=== PATIENT | male | born 1955 | race Caucasian/White ===

== ENCOUNTER 2017-02-03 10:02 | Emergency (ER) | payer OTHER, MEDICARE ==
[2017-02-03] MEDS ORDERED: CLINDAMYCIN 600 MG/D5W RTU 50 ML IV ONE (10:33)
--- NOTE | 2017-02-03 10:35 | ER Document Report ---
ED Medical Screen (RME) - General Chief Complaint: Leg Pain Stated Complaint: LEFT LEG PAIN Time Seen by Provider: 02/03/17 10:32 Mode of Arrival: Wheelchair Information source: Patient Notes: Patient presents complaining of 3 day history of left lower extremity pain, redness and swelling. Patient states that his leg has started to weep. Patient is concerned about cellulitis and states he has been hospitalized with this in the past. Patient denies any fever. Patient does report a history of diabetes. hx: Hypertension, diabetes, dyslipidemia TRAVEL OUTSIDE OF THE [place] IN LAST 30 DAYS: No - Related Data Allergies/Adverse Reactions: No Known Allergies Allergy (Verified 02/03/17 10:10) Past Medical History - Social History Chew tobacco use (# tins/day): No Frequency of alcohol use: None Drug Abuse: None - Past Medical History Cardiac Medical History: Reports: Hx Hypertension Endocrine Medical History: Reports: Hx Diabetes Mellitus Type 1 Renal/ Medical History: Denies: Hx Peritoneal Dialysis GI Medical History: Reports: Hx Gastroesophageal Reflux Disease Psychiatric Medical History: Reports: Hx Depression Past Surgical History: Reports: Hx Appendectomy, Hx Orthopedic Surgery - bunyan , knee x2, palm, Hx Tonsillectomy - x2 - Immunizations Hx Diphtheria, Pertussis, Tetanus Vaccination: Yes Physical Exam - Vital signs Vitals: Temp Pulse Resp BP Pulse Ox 97.9 F 76 18 188/80 H 96 02/03/17 10:02/03/17 10:02/03/17 10:02/03/17 10:02/03/17 10:09 - Skin Skin Color: Erythema - Her lower extremities Skin Turgor: Tight Location of irregularity: Other - Weeping wounds to left lower extremity with yellow serous drainage Course - Vital Signs Vital signs: Temp Pulse Resp BP Pulse Ox 97.9 F 76 18 188/80 H 96 02/03/17 10:02/03/17 10:02/03/17 10:02/03/17 10:02/03/17 10:09
[2017-02-03 11:33] LABS: APPEARANCE,URINE CLEAR; BILIRUBIN,URINE NEGATIVE (NEGATIVE); GLUCOSE, URINE 50 mg/dL (NEGATIVE); KETONES,URINE NEGATIVE (NEGATIVE); LEUKOCYTE ESTERASE,URINE NEGATIVE (NEGATIVE); NITRITE,URINE NEGATIVE (NEGATIVE); PROTEIN,URINE 30 mg/dL (NEGATIVE); URINE SPECIFIC GRAVITY 1.008; UROBILINOGEN,URINE NEGATIVE mg/dL (<2.0)
[2017-02-03 11:35] LABS: ABSOLUTE BASOPHILS # (AUTO) 0.1 10^3/uL (0.0-0.2); ABSOLUTE EOSINOPHILS # (AUTO) 0.2 10^3/uL (0.0-0.6); ABSOLUTE LYMPHOCYTES (AUTO) 1.5 10^3/uL (0.5-4.7); ABSOLUTE MONOCYTES (AUTO) 0.7 10^3/uL (0.1-1.4); ABSOLUTE NEUT (AUTO) 4.1 10^3/uL (1.7-8.2); BASOPHILS % (AUTO) 0.8 % (0-2); HEMATOCRIT 41.4 % (37.9-51.0); HEMOGLOBIN 13.8 g/dL (13.5-17.0); LYMPHOCYTES % (AUTO) 22.9 % (13-45); MEAN CORPUSCULAR HEMOGLOBIN 29.2 pg (27.0-33.4); MEAN CORPUSCULAR HGB CONC 33.2 g/dL (32.0-36.0); MEAN CORPUSCULAR VOLUME 88 fl (80-97); MONOCYTES % (AUTO) 11.2 % (3-13); RED BLOOD COUNT 4.71 10^6/uL (4.35-5.55); RED CELL DISTRIBUTION WIDTH 13.2 % (11.5-14.0); SEGMENTED NEUTROPHILS % (AUTO) 62.1 % (42-78); WHITE BLOOD COUNT 6.6 10^3/uL (4.0-10.5)
[2017-02-03 11:50] LABS: ALANINE AMINOTRANSFERASE 37 U/L (21-72); ALBUMIN 3.9 g/dL (3.5-5.0); ALKALINE PHOSPHATASE 77 U/L (38-126); ANION GAP 12 (5-19); ASPARTATE AMINO TRANSFERASE 21 U/L (17-59); BILIRUBIN,DIRECT 0.3 mg/dL (0.0-0.4); BILIRUBIN,TOTAL 0.6 mg/dL (0.2-1.3); BLOOD UREA NITROGEN 16 mg/dL (7-20); CARBON DIOXIDE 25 mmol/L (22-30); CHLORIDE 102 mmol/L (98-107); CREATININE RESULT 0.83 mg/dL (0.52-1.25); GLUCOSE 205 mg/dL (75-110); POTASSIUM 4.2 mmol/L (3.6-5.0); SODIUM 138.6 mmol/L (137-145); TOTAL PROTEIN 7.2 g/dL (6.3-8.2)
[2017-02-03] MEDS ORDERED: CLINDAMYCIN HCL 150 MG CAPSULE PO ONE (14:11)
--- NOTE | 2017-02-03 14:23 | ER Document Report ---
ED General - General Chief Complaint: Leg Pain Stated Complaint: LEFT LEG PAIN Time Seen by Provider: 02/03/17 10:32 Mode of Arrival: Wheelchair TRAVEL OUTSIDE OF THE [place] IN LAST 30 DAYS: No - HPI Patient complains to provider of: cellulitis Notes: Patient has chronic venous stasis changes to bilateral lower extremities now with warmth and erythema around the stasis changes. States similar to cellulitis in the past. Denies fevers chills nausea vomiting. - Related Data Allergies/Adverse Reactions: No Known Allergies Allergy (Verified 02/03/17 10:10) Past Medical History - General Information source: Patient - Social History Smoking Status: Current Every Day Smoker Chew tobacco use (# tins/day): No Frequency of alcohol use: None Drug Abuse: None Family History: Reviewed & Not Pertinent Patient has suicidal ideation: No Patient has homicidal ideation: No - Past Medical History Cardiac Medical History: Reports: Hx Hypertension Endocrine Medical History: Reports: Hx Diabetes Mellitus Type 1 Renal/ Medical History: Denies: Hx Peritoneal Dialysis GI Medical History: Reports: Hx Gastroesophageal Reflux Disease Psychiatric Medical History: Reports: Hx Depression Past Surgical History: Reports: Hx Appendectomy, Hx Orthopedic Surgery - bunyan , knee x2, palm, Hx Tonsillectomy - x2 - Immunizations Hx Diphtheria, Pertussis, Tetanus Vaccination: Yes Hx Pneumococcal Vaccination: 09/02/09 Review of Systems - Review of Systems Constitutional: No symptoms reported EENT: No symptoms reported Cardiovascular: No symptoms reported Respiratory: No symptoms reported Gastrointestinal: No symptoms reported Genitourinary: No symptoms reported Male Genitourinary: No symptoms reported Musculoskeletal: No symptoms reported Skin: Other - Cellulitis Hematologic/Lymphatic: No symptoms reported Neurological/Psychological: No symptoms reported Physical Exam - Vital signs Vitals: Temp Pulse Resp BP Pulse Ox 97.9 F 76 18 188/80 H 96 02/03/17 10:02/03/17 10:02/03/17 10:02/03/17 10:02/03/17 10:09 Interpretation: Normal - General General appearance: Appears well, Alert - HEENT Head: Normocephalic, Atraumatic Eyes: Normal Pupils: PERRL - Respiratory Respiratory status: No respiratory distress Chest status: Nontender Breath sounds: Normal Chest palpation: Normal - Cardiovascular Rhythm: Regular Heart sounds: Normal auscultation Murmur: No - Abdominal Inspection: Normal Distension: No distension Bowel sounds: Normal Tenderness: Nontender Organomegaly: No organomegaly - Back Back: Normal, Nontender - Extremities General upper extremity: Normal inspection, Nontender, Normal color, Normal ROM , Normal temperature General lower extremity: Normal inspection, Nontender, Normal color, Normal ROM , Normal temperature, Normal weight bearing. No: Anai's sign - Neurological Neuro grossly intact: Yes Cognition: Normal Orientation: AAOx4 Dom Coma Scale Eye Opening: Spontaneous [place] Coma Scale Verbal: Oriented [place] Coma Scale Motor: Obeys Commands [place] Coma Scale Total: 15 Speech: Normal Motor strength normal: LUE, RUE, LLE, RLE Sensory: Normal - Psychological Associated symptoms: Normal affect, Normal mood - Skin Skin Temperature: Warm Skin Moisture: Dry Skin Color: Normal, Other - Patient with chronic venous stasis changes bilaterally but now with surrounding erythema and warmth Course - Re-evaluation Re-evalutation: 02/03/17 15:40 Will treat cellulitis with clindamycin. Lab work shows no critical etiology discharged home - Vital Signs Vital signs: Temp Pulse Resp BP Pulse Ox 97.9 F 76 18 188/80 H 96 02/03/17 10:09 02/03/17 10:09 02/03/17 10:09 02/03/17 10:09 02/03/17 10:09 - Laboratory Result Diagrams: 02/03/17 11:10 02/03/17 11:10 Laboratory results interpreted by me: 02/03/17 02/03/17 10:51 11:10 Glucose 205 H Urine Protein 30 H Urine Glucose (UA) 50 H Urine Blood MODERATE H Discharge - Discharge Clinical Impression: Cellulitis Qualifiers: Site of cellulitis: extremity Site of cellulitis of extremity: lower extremity Laterality: unspecified laterality Qualified Code(s): L03.119 - Cellulitis of unspecified part of limb Condition: Good Disposition: HOME, SELF-CARE Instructions: Cellulitis ([facility]), Clindamycin ([facility]) Additional Instructions: The examination is consistent with cellulitis. Follow-up with your primary care physician. Please take antibiotics as prescribed Prescriptions: Clindamycin HCl 150 mg PO QID 10 Days Hydrocodone Bit/Acetaminophen [Hydrocodon-Acetaminophen 5-325] 1 each PO Q6 #20 tablet Forms: Return to Work
[2017-02-03 14:51] VITALS: BP 164/72
== END 2017-02-03 14:35 | disposition home or self-care (01) ==
LOC: ER 10:02
DX: L03.119 Cellulitis of unspecified part of limb (principal); M79.605 Pain in left leg; F17.200 Nicotine dependence, unspecified, uncomplicated; I10 Essential (primary) hypertension; E10.9 Type 1 diabetes mellitus without complications; K21.9 Gastro-esophageal reflux disease without esophagitis
CPT/HCPCS: 36415; 80053; 81001; 83605; 85025; 87040; 96365; 99283

== ENCOUNTER 2020-05-12 23:09 | Inpatient (IN) | payer OTHER, MEDICARE ==
--- NOTE | 2020-05-13 00:10 | ER Document Report ---
ED General - General Chief Complaint: Low Blood Pressure Stated Complaint: HYPOTENSION Notes: 65-year-old male history of CHF hypertension COPD diabetes presents with low blood pressure, generalized weakness, cough scantly productive, fatigue x1 week. Patient denies focal symptoms, fever, shortness of breath, chest pain. History limited by poor historian TRAVEL OUTSIDE OF THE [place] IN LAST 30 DAYS: No - Related Data Allergies/Adverse Reactions: No Known Allergies Allergy (Verified 02/03/17 10:10) Home Medications: cavedilol, aspirin, lisinopril, diclofenac, gabapentin, amlopipine, ibuprofen, nexium, fluoxetine, atorvastatin, pronethazine, metformin, furosemide Past Medical History - General Information source: Patient, [facility] Records - Social History Smoking Status: Former Smoker Frequency of alcohol use: None Drug Abuse: None Family History: Reviewed & Not Pertinent Patient has homicidal ideation: No - Past Medical History Cardiac Medical History: Reports: Hx Congestive Heart Failure, Hx Hypertension Pulmonary Medical History: Reports: Hx COPD Endocrine Medical History: Reports: Hx Diabetes Mellitus Type 1 Renal/ Medical History: Denies: Hx Peritoneal Dialysis GI Medical History: Reports: Hx Gastroesophageal Reflux Disease Psychiatric Medical History: Reports: Hx Depression Past Surgical History: Reports: Hx Appendectomy, Hx Orthopedic Surgery - bunyan, knee x2, palm, Hx Tonsillectomy - x2 - Immunizations Hx Diphtheria, Pertussis, Tetanus Vaccination: Yes Hx Pneumococcal Vaccination: 09/02/09 Review of Systems - Review of Systems Notes: REVIEW OF SYSTEMS: CONSTITUTIONAL : Denies fever, chills, or sweats. EENT: Denies recent cold/sinus symptoms, denies throat pain CARDIOVASCULAR: Denies chest pain, [employer]ATORY: + cough, -denies shortness of breath. GASTROINTESTINAL: Denies abdominal pain, nausea/vomiting. GENITOURINARY: Denies difficulty urinating, painful urination. MUSCULOSKELETAL: Denies neck pain, back pain. SKIN: Denies rash or skin lesions. HEMATOLOGIC : Denies easy bruising or bleeding. LYMPHATIC: Denies swollen, enlarged glands. NEUROLOGICAL: Denies headache, denies change in gait. PSYCHIATRIC: Denies anxiety or stress or depression. Physical Exam - Vital signs Vitals: Resp 10 L 05/12/20 23:37 - Notes Notes: PHYSICAL EXAMINATION: GENERAL: Well-appearing, well-nourished and in no acute distress. HEAD: Atraumatic, normocephalic. EYES: Pupils equal round and appropriate constriction, sclera anicteric, conjunctiva are normal. ENT: nares patent, moist mucous membranes. NECK: Normal range of motion, supple without lymphadenopathy LUNGS: Breath sounds clear to auscultation bilaterally and equal. No rales HEART: Regular rate and rhythm without murmurs ABDOMEN: Soft, nontender, no guarding, no masses, no CVAT EXTREMITIES: Normal range of motion, no pitting or edema. No cyanosis. NEUROLOGICAL: Awake, alert, conversing appropriately, moves all extremities spontaneously. Cranial nerves II through XII intact bilaterally, normal finge r-to-nose, 5 out of 5 strength in all extremities, normal sensation PSYCH: Normal mood, normal affect. SKIN: Warm, Dry Course - Re-evaluation Re-evalutation: 05/17/20 08:11 Patient weakness with hypotension and patient with history with hypertension, no focal symptoms, will rule out COVID, treated for COPD exacerbation, rule out ACS, patient with renal insufficiency unknown baseline, admitted to medicine for further management The patient was evaluated during the global COVID-19 pandemic and that diagnosis was suspected/considered upon their initial presentation. Their evaluation, treatment and testing was consistent with current guidelines for patients who present with complaints or symptoms that may be related to COVID-19. - Vital Signs Vital signs: Temp Pulse Resp BP Pulse Ox 97.7 F 72 23 H 162/82 H 95 05/15/20 11:55 05/15/20 11:55 05/15/20 11:55 05/15/20 11:55 05/15/20 11:55 - Laboratory Result Diagrams: 05/15/20 05:45 05/14/20 05:55 Laboratory results interpreted by me: 05/12/20 05/12/20 05/12/20 23:33 23:33 23:33 WBC 11.1 H RBC 4.16 L Hgb 12.1 L Hct 36.7 L RDW 14.5 H VBG pH BUN 29 H Creatinine 2.03 H Est GFR ( Amer) 40 L Est GFR (MDRD) Non-Af 33 L Glucose 162 H Lactic Acid 2.5 H Urine Protein Urine Blood Urine Bilirubin 05/12/20 05/13/20 23:33 00:39 WBC RBC Hgb Hct RDW VBG pH 7.23 L BUN Creatinine Est GFR ( Amer) Est GFR (MDRD) Non-Af Glucose Lactic Acid Urine Protein 30 H Urine Blood MODERATE H Urine Bilirubin SMALL H - EKG Interpretation by Me Additional EKG results interpreted by me: 05/13/20 00:10 Heart rate 63, first-degree AV block, no significant ST elevations or depressions, no significant T wave abnormalities, QTc 406 Discharge - Discharge Clinical Impression: Hypotension, COPD (chronic obstructive pulmonary disease), Renal insufficiency Condition: Good Disposition: ADMITTED INPATIENT
[2020-05-13 00:25] LABS: VENOUS BLOOD BASE EXCESS -6.6 mmol/L; VENOUS BLOOD HCO3 21.3 mmol/L (20-32); VENOUS BLOOD PCO2 52.6 mmHg (35-63); VENOUS BLOOD PH 7.23 (7.30-7.42)
[2020-05-13 00:30] LABS: ABSOLUTE EOSINOPHILS # (AUTO) 0.3 10^3/uL (0.0-0.6); ABSOLUTE LYMPHOCYTES (AUTO) 2.2 10^3/uL (0.5-4.7); ABSOLUTE MONOCYTES (AUTO) 1.2 10^3/uL (0.1-1.4); ABSOLUTE NEUT (AUTO) 7.4 10^3/uL (1.7-8.2); BASOPHILS % (AUTO) 0.3 % (0-2); EOSINOPHILS % (AUTO) 3.1 % (0-6); HEMATOCRIT 36.7 % (37.9-51.0); HEMOGLOBIN 12.1 g/dL (13.5-17.0); MEAN CORPUSCULAR HEMOGLOBIN 29.1 pg (27.0-33.4); MEAN CORPUSCULAR HGB CONC 32.9 g/dL (32.0-36.0); MEAN CORPUSCULAR VOLUME 88 fl (80-97); MONOCYTES % (AUTO) 10.5 % (3-13); PLATELET COUNT 271 10^3/uL (150-450); RED BLOOD COUNT 4.16 10^6/uL (4.35-5.55); RED CELL DISTRIBUTION WIDTH 14.5 % (11.5-14.0); SEGMENTED NEUTROPHILS % (AUTO) 66.1 % (42-78); TOTAL CELLS COUNTED % (AUTO) 100 %; WHITE BLOOD COUNT 11.1 10^3/uL (4.0-10.5)
[2020-05-13 00:31] LABS: PROTHROMBIN TIME 13.4 SEC (11.4-15.4)
[2020-05-13] MEDS ORDERED: PREDNISONE 20 MG TABLET PO ONE (00:37)
[2020-05-13] MEDS ORDERED: IPRATROPIUM/ALBUTEROL 0.5-2.5 MG/3 ML AMPUL NEB ONE (00:37)
[2020-05-13] MEDS ORDERED: AZITHROMYCIN 250 MG TABLET PO ONE (00:37)
[2020-05-13 00:46] LABS: ALBUMIN 3.5 g/dL (3.5-5.0); ALKALINE PHOSPHATASE 63 U/L (38-126); ANION GAP 10 (5-19); ASPARTATE AMINO TRANSFERASE 17 U/L (17-59); BILIRUBIN,DIRECT 0.4 mg/dL (0.0-0.4); BILIRUBIN,TOTAL 0.6 mg/dL (0.2-1.3); BLOOD UREA NITROGEN 29 mg/dL (7-20); CALCIUM 8.5 mg/dL (8.4-10.2); CARBON DIOXIDE 22 mmol/L (22-30); CHLORIDE 105 mmol/L (98-107); GLUCOSE 162 mg/dL (75-110); POTASSIUM 4.6 mmol/L (3.6-5.0); TOTAL PROTEIN 6.4 g/dL (6.3-8.2)
[2020-05-13 01:13] LABS: NT PRO BNP 31 pg/mL (<125)
[2020-05-13 01:16] LABS: TROPONIN I < 0.012 ng/mL
[2020-05-13 01:18] LABS: APPEARANCE,URINE SLIGHTLY-CLOUDY; BILIRUBIN,URINE SMALL (NEGATIVE); COLOR,URINE YELLOW; GLUCOSE, URINE NEGATIVE (NEGATIVE); KETONES,URINE NEGATIVE (NEGATIVE); PROTEIN,URINE 30 mg/dL (NEGATIVE); URINE SPECIFIC GRAVITY 1.021; UROBILINOGEN,URINE NEGATIVE mg/dL (<2.0)
--- NOTE | 2020-05-13 01:18 | RADIOLOGY REPORT (SQ) ---
CLINICAL INDICATION: cough sob. TECHNIQUE: A single portable AP view was obtained of the chest at 0039 hours. COMPARISON: June 11, 2016. FINDINGS: The cardiomediastinal silhouette is prominent but stable. The lungs are grossly clear. No evidence of effusion or pneumothorax. Chronic parenchymal lung change. IMPRESSION: No evidence of active intrathoracic disease.
[2020-05-13] MEDS ORDERED: NORMAL SALINE 1000 ML 1,000 ML IV ONE (01:24)
[2020-05-13 01:52] LABS: URINE AMPHETAMINES SCREEN NEGATIVE; URINE BENZODIAZEPINES SCREEN NEGATIVE; URINE COCAINE SCREEN NEGATIVE; URINE MARIJUANA (THC) SCREEN NEGATIVE; URINE METHADONE SCREEN NEGATIVE; URINE PHENCYCLIDINE SCREEN NEGATIVE
[2020-05-13 01:55] LABS: URINE BARBITURATES SCREEN UNCONFIRMED POSITIVE
--- NOTE | 2020-05-13 02:05 | ER Document Report ---
ED General - General Chief Complaint: Low Blood Pressure Stated Complaint: HYPOTENSION Notes: 65-year-old male history of COPD, chronic low back pain, hypertension, prior renal failure several years ago presents with approximately 1 week of mostly dry scantly productive nonbloody cough, generalized weakness, fatigue, and low blood pressure. Patient brought in by EMS and was hypotensive with EMS and was given 1 L crystalloid bolus prior to arrival. Patient denies current vertigo but says that he has had intermittent episodes of vertigo over the past years and told that he had TIA in the past but no current symptoms. Patient denies fever, chest pain, abdominal pain, change in chronic back pain times years, syncope, trauma, sick contacts, change in p.o. intake, vomiting, diarrhea TRAVEL OUTSIDE OF THE [place] IN LAST 30 DAYS: No - Related Data Allergies/Adverse Reactions: No Known Allergies Allergy (Verified 02/03/17 10:10) Home Medications: cavedilol, aspirin, lisinopril, diclofenac, gabapentin, amlopipine, ibuprofen, nexium, fluoxetine, atorvastatin, pronethazine, metformin, furosemide Past Medical History - General Information source: Patient, [facility] Records - Social History Smoking Status: Former Smoker Frequency of alcohol use: None Drug Abuse: None Family History: Reviewed & Not Pertinent Patient has homicidal ideation: No - Past Medical History Cardiac Medical History: Reports: Hx Congestive Heart Failure, Hx Hypertension Pulmonary Medical History: Reports: Hx COPD Endocrine Medical History: Reports: Hx Diabetes Mellitus Type 1 Renal/ Medical History: Denies: Hx Peritoneal Dialysis GI Medical History: Reports: Hx Gastroesophageal Reflux Disease Psychiatric Medical History: Reports: Hx Depression Past Surgical History: Reports: Hx Appendectomy, Hx Orthopedic Surgery - bunyan, knee x2, palm, Hx Tonsillectomy - x2 - Immunizations Hx Diphtheria, Pertussis, Tetanus Vaccination: Yes Hx Pneumococcal Vaccination: 09/02/09 Review of Systems - Review of Systems Notes: REVIEW OF SYSTEMS: CONSTITUTIONAL : Denies fever, chills, or sweats. EENT: Denies recent sinus symptoms, denies throat pain CARDIOVASCULAR: Denies chest pain, ELIZAB[employer] RESPIRATORY: + cough, + shortness of breath. GASTROINTESTINAL: Denies abdominal pain, nausea/vomiting. GENITOURINARY: Denies difficulty urinating, painful urination. MUSCULOSKELETAL: Denies neck pain, back pain. SKIN: Denies rash or skin lesions. HEMATOLOGIC : Denies easy bruising or bleeding. LYMPHATIC: Denies swollen, enlarged glands. NEUROLOGICAL: Denies headache, denies change in gait. PSYCHIATRIC: Denies anxiety or stress or depression. Physical Exam - Vital signs Vitals: Resp 10 L 05/12/20 23:37 - Notes Notes: PHYSICAL EXAMINATION: GENERAL: Chronically ill-appearing middle-aged man appearing older than stated age in no acute distress HEAD: Atraumatic, normocephalic. EYES: Pupils equal round and appropriate constriction, sclera anicteric, conjunctiva are normal. ENT: nares patent, moist mucous membranes. NECK: Normal range of motion, supple without lymphadenopathy, no bruits LUNGS: Normal respiratory rate and effort, bilateral expiratory wheezing and mildly decreased air movement HEART: Regular rate and rhythm without murmurs ABDOMEN: Soft, nontender, no guarding, no masses, no CVAT EXTREMITIES: Normal range of motion, no pitting or edema. No cyanosis. NEUROLOGICAL: Awake, alert, conversing appropriately, moves all extremities spontaneously, cranial nerves II through XII intact bilaterally, normal sensa tion in all extremities, 5/5 strength in all extremities, normal [id number], normal HINTS exam PSYCH: Normal mood, normal affect. SKIN: Warm, Dry, normal turgor, no rashes or lesions noted. Course - Re-evaluation Re-evalutation: 05/13/20 02:14 Patient with "cloudy" urine, generalized fatigue, cough, low blood pressure for 1 week concerning for possible COVID-19 infection. Mild COPD exacerbation also, patient's creatinine elevated unknown what baseline is, no signs of clinical dehydration. Given concern for JAZMINE, dehydration, and ability to decompensate admitted patient to medicine floor. Discussed case with Dr. Hoang who has accepted patient. The patient was evaluated during the global COVID-19 pandemic and that diagnosis was suspected/considered upon their initial presentation. Their evaluation, treatment and testing was consistent with current guidelines for patients who present with complaints or symptoms that may be related to COVID-19. - Vital Signs Vital signs: Temp Pulse Resp BP Pulse Ox 97.7 F 72 23 H 162/82 H 95 05/15/20 11:55 05/15/20 11:55 05/15/20 11:55 05/15/20 11:55 05/15/20 11:55 - Laboratory Result Diagrams: 05/15/20 05:45 05/14/20 05:55 Laboratory results interpreted by me: 05/12/20 05/12/20 05/12/20 23:33 23:33 23:33 WBC 11.1 H RBC 4.16 L Hgb 12.1 L Hct 36.7 L RDW 14.5 H VBG pH BUN 29 H Creatinine 2.03 H Est GFR ( Amer) 40 L Est GFR (MDRD) Non-Af 33 L Glucose 162 H Lactic Acid 2.5 H Urine Protein Urine Blood Urine Bilirubin 05/12/20 05/13/20 23:33 00:39 WBC RBC Hgb Hct RDW VBG pH 7.23 L BUN Creatinine Est GFR ( Amer) Est GFR (MDRD) Non-Af Glucose Lactic Acid Urine Protein 30 H Urine Blood MODERATE H Urine Bilirubin SMALL H - Diagnostic Test Radiology results interpreted by me: 05/13/20 00:00 Sinus rhythm, first-degree AV block, no significant ST elevation or depression, no significant T wave abnormalities Discharge - Discharge Clinical Impression: Renal insufficiency Hypotension Qualifiers: Hypotension type: unspecified hypotension type Qualified Code(s): I95.9 - Hypotension, unspecified COPD (chronic obstructive pulmonary disease) Qualifiers: COPD type: unspecified COPD Qualified Code(s): J44.9 - Chronic obstructive pulmonary disease, unspecified Condition: Good Disposition: ADMITTED INPATIENT Admitting Provider: [facility] Unit Admitted: Medical Floor
[2020-05-13] MEDS ORDERED: IPRATROPIUM/ALBUTEROL 0.5-2.5 MG/3 ML AMPUL NEB PRN (02:51)
--- NOTE | 2020-05-13 04:04 | RADIOLOGY REPORT (SQ) ---
CT head without contrast on 05/13/2020 at 3:22 AM CLINICAL INDICATION: Vertigo TECHNIQUE: Multiple axial images are obtained throughout the head without the administration of contrast. This exam was performed according to our departmental dose-optimization program, which includes automated exposure control, adjustment of the mA and/or kV according to patient size and/or use of iterative reconstruction technique. Total DLP is 1017.17 mGy*cm. 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 There is no hydrocephalus. There is no CT evidence of acute infarct. There is no hemorrhage. There are no abnormal extra-axial fluid collections. There is no mass, mass effect or midline shift. No bony abnormality is noted. IMPRESSION: Stable exam with no acute intracranial abnormality.
[2020-05-13] MEDS ORDERED: DEXTROSE 50%-WATER 25 GM/50 ML DISP.SYRIN IV PRN ×2 (04:52)
[2020-05-13] MEDS ORDERED: DEXTROSE 40% GEL 15 GM TUBE PO PRN ×2 (04:52)
[2020-05-13] MEDS ORDERED: GLUCAGON,HUMAN RECOMB 1 MG INJ IM PRN (04:52)
--- NOTE | 2020-05-13 05:00 | PDOC H&P ---
History of Present Illness Admission Date/PCP: 05/13/20 02:[facility] Patient complains of: Increased sleepiness, cough History of Present Illness: LISA ESCOBAR is a 65 year old male, history of COPD on albuterol, type 2 diabetes, coronary artery disease who came in the emergency room with complaints of increased sleepiness cough. According to the patient and her daughter he has been having cough with minimal mucus production 1 week with associated general malaise, no fever. About 1 day prior to admission he was noted to have increased sleepiness, falling asleep during conversations which is not his baseline. He is supposed to be on BiPAP which he admits to not using for a few months. He denies any wheezing, chest pain, palpitations. No prior history of hospital admission secondary to COPD. No known exposure to COVID. Per EMS notes he was noted to be hypotensive hence was given 1 L of normal saline. He was also recently diagnosed with carotid artery stenosis. In the emergency room blood pressure upon arrival was 90/48, rate of 62. WBC count 11.1, low been 12.1. CMP showed creatinine of 2.03 lactic acid 2.5. Urine no signs of UTI . blood cultures were sent EKG showed sinus rhythm, his x- ray was unremarkable, CT unremarkable. He was given 1 dose of p.o. azithromycin, and duo nebs. He was subsequently admitted for further evaluation and management Past Medical History Cardiac Medical History: Reports: Congestive Heart Failure, Hyperlipidema, Hypertension Pulmonary Medical History: Reports: Chronic Obstructive Pulmonary Disease (COPD), Sleep Apnea EENT Medical History: Reports: None Neurological Medical History: Reports: Ischemic CVA Endocrine Medical History: Reports: Diabetes Mellitus Type 2 GI Medical History: Reports: Gastroesophageal Reflux Disease Psychiatric Medical History: Reports: Depression Past Surgical History Past Surgical History: Reports: Appendectomy, Orthopedic Surgery - bunyan, knee x2, palm, Tonsillectomy - x2 Social History Smoking Status: Former Smoker Cigarettes Packs Per Day: 20 Electronic Cigarette use?: Yes Number of Years Smokin Frequency of Alcohol Use: None Hx Recreational Drug Use: No Drugs: None Hx Prescription Drug Abuse: No Family History Family History: Reviewed & Not Pertinent Parental Family History Reviewed: Yes Children Family History Reviewed: Yes Sibling(s) Family History Reviewed.: Yes Medication/Allergy Home Medications: Fluoxetine HCl [Prozac 20 mg Capsule] 20 mg PO DAILY 08/31/14 Aspirin [Aspirin 325 mg Tablet] 325 mg PO DAILY 09/01/14 Atenolol [Tenormin] 25 mg PO DAILY 10/30/15 Atorvastatin Calcium 60 mg PO DAILY 10/30/15 Furosemide [Lasix 20 mg Tablet] 20 mg PO BID 10/30/15 Insulin Glargine,Hum.rec.anlog [Lantus] 14 units SQ DAILY 10/30/15 Omeprazole 20 tab PO DAILY 10/30/15 Saxagliptin HCl [Onglyza] 5 mg PO DAILY 10/30/15 Gabapentin 300 mg PO BID 02/22/16 Ibuprofen 800 mg pe PO Q8H PRN 02/22/16 Clindamycin HCl [Cleocin 150 mg Capsule] 300 mg PO Q6 #40 capsule 02/26/16 Oxycodone HCl/Acetaminophen [Percocet 7.5-325 mg Tablet] 1 tab PO Q6 03/13/16 Lisinopril [Prinivil 40 mg Tablet] 40 mg PO DAILY #30 tablet 03/15/16 Oxycodone HCl/Acetaminophen [Percocet 5-325 mg Tablet] 1 - 2 tab PO Q4H PRN #15 tablet 06/12/16 Sulfamethoxazole/Trimethoprim [Bactrim Ds Tablet] 1 each PO BID #14 tablet 06/12/16 Clindamycin HCl 150 mg PO QID 10 Days capsule 02/03/17 Hydrocodone Bit/Acetaminophen [Hydrocodon-Acetaminophen 5-325] 1 each PO Q6 #20 tablet 02/03/17 Allergies/Adverse Reactions: No Known Allergies Allergy (Verified 02/03/17 10:10) Physical Exam Vital Signs: Temp Pulse Resp BP Pulse Ox 97.3 F 65 14 122/55 L 98 05/12/20 23:41 05/12/20 23:41 05/13/20 02:31 05/13/20 02:31 05/13/20 02:31 Intake & Output 05/11/20 05/12/20 05/13/20 06:59 06:59 06:59 Intake Total 1000 Balance 1000 General appearance: PRESENT: mild distress, other - Morbidly obese Head exam: PRESENT: atraumatic, normocephalic Eye exam: PRESENT: EOMI, PERRLA Mouth exam: PRESENT: moist Neck exam: PRESENT: full ROM Respiratory exam: PRESENT: clear to auscultation oh, symmetrical, unlabored. ABSENT: crackles Cardiovascular exam: PRESENT: RRR, +S1, +S2. ABSENT: tachycardia Pulses: PRESENT: normal radial pulses GI/Abdominal exam: PRESENT: normal bowel sounds, soft. ABSENT: rebound, t enderness Extremities exam: PRESENT: full ROM, +1 edema, other - venous stasis dermatitis bilateral Musculoskeletal exam: PRESENT: full ROM Neurological exam: PRESENT: alert, awake - Falls falls asleep in the middle of conversation, oriented to person, oriented to place, oriented to time, oriented to situation Psychiatric exam: PRESENT: normal mood Skin exam: PRESENT: normal color, other - Stasis dermatitis bilateral Results Laboratory Results: 05/12/20 23:33 05/12/20 23:33 05/12/20 05/12/20 05/12/20 23:33 23:33 23:33 WBC 11.1 H RBC 4.16 L Hgb 12.1 L Hct 36.7 L MCV 88 MCH 29.1 MCHC 32.9 RDW 14.5 H Plt Count 271 Seg Neutrophils % 66.1 VBG pH VBG pCO2 VBG HCO3 VBG Base Excess Sodium 137.3 Potassium 4.6 Chloride 105 Carbon Dioxide 22 Anion Gap 10 BUN 29 H Creatinine 2.03 H Est GFR ( Amer) 40 L Glucose 162 H Lactic Acid 2.5 H Calcium 8.5 Total Bilirubin 0.6 AST 17 Alkaline Phosphatase 63 Total Protein 6.4 Albumin 3.5 Urine Color Urine Appearance Urine pH Ur Specific [place] Urine Protein Urine Glucose (UA) Urine Ketones Urine Blood Urine RBC (Auto) 05/12/20 05/13/20 05/13/20 23:33 00:39 03:05 WBC RBC Hgb Hct MCV MCH MCHC RDW Plt Count Seg Neutrophils % VBG pH 7.23 L VBG pCO2 52.6 VBG HCO3 21.3 VBG Base Excess -6.6 Sodium Potassium Chloride Carbon Dioxide Anion Gap BUN Creatinine Est GFR ( Amer) Glucose Lactic Acid 1.6 Calcium Total Bilirubin AST Alkaline Phosphatase Total Protein Albumin Urine Color YELLOW Urine Appearance SLIGHTLY-CLOUDY Urine pH 5.0 Ur Specific [place] 1.021 Urine Protein 30 H Urine Glucose (UA) NEGATIVE Urine Ketones NEGATIVE Urine Blood MODERATE H Urine RBC (Auto) 18 05/12/20 23:33 Troponin I < 0.012 NT-Pro-B Natriuret Pep 31 Impressions: Chest X-Ray 05/13/20 00:06 IMPRESSION: No evidence of active intrathoracic disease. Head CT 05/13/20 01:53 IMPRESSION: Stable exam with no acute intracranial abnormality. Assessment and Plan - Diagnosis (1) Chronic hypercapnic respiratory failure Is this a current diagnosis for this admission?: Yes Plan: -Known COPD sleep apnea with poor compliance to CPAP use -Admitted due to increased sleepiness and increased cough -VBG pH 7.23, PCO2 52.6 -Likely from sleep apnea and poor compliance to CPAP -Awaiting ABG -Ordered BiPAP (2) Suspected 2019 novel coronavirus infection Is this a current diagnosis for this admission?: Yes Plan: pending result - no known exposure (3) COPD (chronic obstructive pulmonary disease) Qualifiers: COPD type: unspecified COPD Qualified Code(s): J44.9 - Chronic obstructive pulmonary disease, unspecified Is this a current diagnosis for this admission?: Yes Plan: -Noted with increased cough and sputum production 1 week prior -No fever, no increased use of albuterol -No wheezing on exam -CXR unremarkable -Started on duo nebs -Prednisone 40 mg daily - COVID during -On BiPAP -Will likely need a controller medication (4) JAMI (obstructive sleep apnea) Is this a current diagnosis for this admission?: Yes Plan: -Diagnosed case of sleep apnea poorly compliant with BiPAP -Ordered BiPAP on this admission -Explained importance of adhering to BiPAP (5) Hypotension Qualifiers: Hypotension type: unspecified hypotension type Qualified Code(s): I95.9 - H ypotension, unspecified Is this a current diagnosis for this admission?: Yes Plan: -Blood pressure 90/48 on arrival -Resolved -Continue to monitor -held most of his blood pressure medications clonidine lisinopril carvedilol amlodipine Lasix (6) JAZMINE (acute kidney injury) Is this a current diagnosis for this admission?: Yes Plan: - crea 2.03 unknown baseline - can be from hypotensive episode or underlying CKD - he is on lasix, no known history of CHF - given 1L bolus - will hold off giving further fluids and monitor crea (7) Diabetes mellitus type 2 in obese Is this a current diagnosis for this admission?: Yes Plan: -On alogliptin 25 mg once a day and metformin 500 mg twice daily -Will hold oral medications -Sliding scale insulin and Accu-Checks (8) HTN (hypertension) Is this a current diagnosis for this admission?: Yes Plan: -Held Lasix 20 mg daily, carvedilol 12.5 mg twice daily, amlodipine 10 mg daily, lisinopril 40 mg once a day due to hypertension -Resume as needed (9) Morbid obesity Is this a current diagnosis for this admission?: Yes Plan: -Lifestyle modification and diet advised (10) Hyperlipidemia Qualifiers: Hyperlipidemia type: unspecified Qualified Code(s): E78.5 - Hyperlipidemia, unspecified Is this a current diagnosis for this admission?: Yes Plan: -Continue Lipitor (11) Noncompliance with CPAP treatment Is this a current diagnosis for this admission?: Yes (12) Carotid artery disease Is this a current diagnosis for this admission?: Yes Plan: Continue aspirin and Lipitor - Time Time Spent with patient: 35 or more minutes Smoking Cessation Education: 3 to 10 minutes Anticipated Discharge Disposition: Home, Self Care Anticipated Discharge Timeframe: to be determined - Inpatient Certification Medical Necessity: Need Close Monitoring Due to Risk of Patient Decompensation
[2020-05-13] MEDS: HEPARIN SOD (PORCINE) 5,000 UNIT/ML 1 ML VIAL SUBCUT SCH ×3 (05:58→21:51)
[2020-05-13] MEDS: GABAPENTIN 300 MG CAPSULE PO SCH ×3 (06:06→21:51)
[2020-05-13] MEDS ORDERED: METFORMIN HCL 500 MG TABLET PO SCH (08:00)
[2020-05-13 08:20] LABS: ARTERIAL BLOOD BASE EXCESS -7.2 mmol/L; ARTERIAL BLOOD H2CO3 1.34 mmol/L (1.05-1.35); ARTERIAL BLOOD HCO3 19.7 mmol/L (20-24); ARTERIAL BLOOD O2 SATURATION 88.9 % (94-98); ARTERIAL BLOOD PCO2 44.6 mmHg (35-45); ARTERIAL BLOOD PH 7.26 (7.35-7.45); ARTERIAL BLOOD PO2 63.2 mmHg (80-100)
[2020-05-13 08:21] LABS: ARTERIAL BLOOD FIO2 21%
[2020-05-13] MEDS: INSULIN LISPRO 100 UNIT/ML 3 ML VIAL SUBCUT SCH ×4 (09:01→21:51)
[2020-05-13] MEDS: PREDNISONE 20 MG TABLET PO SCH (09:24)
[2020-05-13] MEDS: ASPIRIN 81 MG TABLET, CHEWABLE PO SCH (09:24)
[2020-05-13] MEDS: FLUOXETINE HCL 20 MG CAPSULE PO SCH (09:24)
[2020-05-13] MEDS ORDERED: AMLODIPINE BESYLATE 10 MG TABLET PO SCH (10:00)
[2020-05-13] MEDS ORDERED: FUROSEMIDE 20 MG TABLET PO SCH (10:00)
[2020-05-13] MEDS ORDERED: CARVEDILOL 12.5 MG TABLET PO SCH (10:00)
[2020-05-13] MEDS ORDERED: LISINOPRIL 10 MG TABLET PO SCH (10:00)
[2020-05-13] MEDS: TAMSULOSIN HCL 0.4 MG CAP.SR.24H PO SCH (14:04)
--- NOTE | 2020-05-13 16:46 | EKG REPORT ---
SEVERITY:- ABNORMAL ECG - SINUS RHYTHM FIRST DEGREE AV BLOCK : Confirmed by: Chava Lucero MD 13-May-2020 16:46:17
[2020-05-13] MEDS: ACETAMINOPHEN 325 MG TABLET PO PRN (19:49)
[2020-05-13] MEDS: ATORVASTATIN CALCIUM 40 MG TABLET PO SCH (21:51)
[2020-05-13] MEDS ORDERED: KETOROLAC TROMETHAMINE INJ/PF 30 MG/1 ML SDV IV ONE (23:11)
[2020-05-13] MEDS ORDERED: KETOROLAC TROMETHAMINE INJ/PF 30 MG/1 ML SDV ONE (23:27)
[2020-05-14] MEDS: HEPARIN SOD (PORCINE) 5,000 UNIT/ML 1 ML VIAL SUBCUT SCH ×3 (05:39→21:48)
[2020-05-14] MEDS: GABAPENTIN 300 MG CAPSULE PO SCH ×3 (05:39→21:49)
[2020-05-14 06:46] LABS: ABSOLUTE BASOPHILS # (AUTO) 0.1 10^3/uL (0.0-0.2); EOSINOPHILS % (AUTO) 0.2 % (0-6); HEMOGLOBIN 11.6 g/dL (13.5-17.0); LYMPHOCYTES % (AUTO) 20.1 % (13-45); MEAN CORPUSCULAR HEMOGLOBIN 29.5 pg (27.0-33.4); MEAN CORPUSCULAR HGB CONC 34.2 g/dL (32.0-36.0); MEAN CORPUSCULAR VOLUME 86 fl (80-97); PLATELET COUNT 236 10^3/uL (150-450); RED BLOOD COUNT 3.94 10^6/uL (4.35-5.55); RED CELL DISTRIBUTION WIDTH 13.8 % (11.5-14.0); SEGMENTED NEUTROPHILS % (AUTO) 68.7 % (42-78); TOTAL CELLS COUNTED % (AUTO) 100 %; WHITE BLOOD COUNT 10.2 10^3/uL (4.0-10.5)
[2020-05-14 07:11] LABS: ARTERIAL BLOOD BASE EXCESS -2.1 mmol/L; ARTERIAL BLOOD H2CO3 1.28 mmol/L (1.05-1.35); ARTERIAL BLOOD HCO3 23.4 mmol/L (20-24); ARTERIAL BLOOD O2 SATURATION 94.5 % (94-98); ARTERIAL BLOOD PCO2 42.5 mmHg (35-45); ARTERIAL BLOOD PH 7.36 (7.35-7.45); ARTERIAL BLOOD TOTAL CO2 24.7 mmol/L (23-27)
[2020-05-14 07:12] LABS: ARTERIAL BLOOD FIO2 21%
[2020-05-14 07:20] LABS: ALBUMIN 3.3 g/dL (3.5-5.0); ALKALINE PHOSPHATASE 58 U/L (38-126); ANION GAP 8 (5-19); ASPARTATE AMINO TRANSFERASE 17 U/L (17-59); BILIRUBIN,DIRECT 0.2 mg/dL (0.0-0.4); BILIRUBIN,TOTAL 0.5 mg/dL (0.2-1.3); BLOOD UREA NITROGEN 31 mg/dL (7-20); CALCIUM 8.9 mg/dL (8.4-10.2); CARBON DIOXIDE 24 mmol/L (22-30); CHLORIDE 106 mmol/L (98-107); GLUCOSE 197 mg/dL (75-110); POTASSIUM 4.8 mmol/L (3.6-5.0); TOTAL PROTEIN 6.2 g/dL (6.3-8.2)
[2020-05-14] MEDS: INSULIN LISPRO 100 UNIT/ML 3 ML VIAL SUBCUT SCH ×4 (07:49→21:51)
[2020-05-14] MEDS: PREDNISONE 20 MG TABLET PO SCH (10:50)
[2020-05-14] MEDS: TAMSULOSIN HCL 0.4 MG CAP.SR.24H PO SCH (10:50)
[2020-05-14] MEDS: ASPIRIN 81 MG TABLET, CHEWABLE PO SCH (10:50)
[2020-05-14] MEDS: FLUOXETINE HCL 20 MG CAPSULE PO SCH (10:51)
--- NOTE | 2020-05-14 13:02 | PDOC PROGRESS REPORT ---
Subjective Progress Note for:: 05/14/20 Subjective:: Patient's breathing is much improved. He is much more comfortable. His COVID test is still pending. He has been oxygenating well. He still has a few scattered wheezing. Reason For Visit: COPD EXACERBATION,HYPERCAPNIA Physical Exam Vital Signs: Temp Pulse Resp BP Pulse Ox 98.1 F 69 20 145/66 H 95 05/14/20 12:00 05/14/20 12:00 05/14/20 12:00 05/14/20 12:00 05/14/20 12:00 Intake & Output 05/13/20 05/14/20 05/15/20 06:59 06:59 06:59 Intake Total 1000 932 Output Total 300 Balance 1000 632 Weight 143 kg General appearance: PRESENT: no acute distress, obese, well-developed, well- nourished Head exam: PRESENT: atraumatic, normocephalic Eye exam: PRESENT: conjunctiva pink, EOMI, PERRLA. ABSENT: scleral icterus Ear exam: PRESENT: normal external ear exam Mouth exam: PRESENT: moist, tongue midline Neck exam: ABSENT: carotid bruit, JVD, lymphadenopathy, thyromegaly Respiratory exam: PRESENT: clear to auscultation oh, unlabored, wheezes - scatt ered. ABSENT: rales, rhonchi Cardiovascular exam: PRESENT: RRR, +S1, +S2. ABSENT: diastolic murmur, rubs, systolic murmur Pulses: PRESENT: normal dorsalis pedis pul Vascular exam: PRESENT: normal capillary refill GI/Abdominal exam: PRESENT: normal bowel sounds, soft. ABSENT: distended, guarding, mass, organolmegaly, rebound, tenderness Rectal exam: PRESENT: deferred Extremities exam: PRESENT: full ROM. ABSENT: calf tenderness, clubbing, pedal edema Neurological exam: PRESENT: alert, awake, oriented to person, oriented to place, oriented to time, oriented to situation, CN II-XII grossly intact. ABSENT: motor sensory deficit Psychiatric exam: PRESENT: appropriate affect, normal mood. ABSENT: homicidal ideation, suicidal ideation Skin exam: PRESENT: dry, intact, warm. ABSENT: cyanosis, rash Results Laboratory Results: 05/14/20 05:55 05/14/20 05:55 05/14/20 05/14/20 05/14/20 05:55 05:55 06:59 WBC 10.2 RBC 3.94 L Hgb 11.6 L Hct 34.0 L MCV 86 MCH 29.5 MCHC 34.2 RDW 13.8 Plt Count 236 Seg Neutrophils % 68.7 Carbonic Acid 1.28 HCO3/H2CO3 Ratio 18:1 ABG pH 7.36 ABG pCO2 42.5 ABG pO2 75.0 L ABG HCO3 23.4 ABG O2 Saturation 94.5 ABG Base Excess -2.1 FiO2 21% Sodium 137.5 Potassium 4.8 Chloride 106 Carbon Dioxide 24 Anion Gap 8 BUN 31 H Creatinine 1.01 Est GFR ( Amer) > 60 Glucose 197 H Calcium 8.9 Total Bilirubin 0.5 AST 17 Alkaline Phosphatase 58 Total Protein 6.2 L Albumin 3.3 L 05/12/20 23:33 Troponin I < 0.012 NT-Pro-B Natriuret Pep 31 Impressions: Chest X-Ray 05/13/20 00:06 IMPRESSION: No evidence of active intrathoracic disease. Head CT 05/13/20 01:53 IMPRESSION: Stable exam with no acute intracranial abnormality. Assessment and Plan - Diagnosis (1) COPD (chronic obstructive pulmonary disease) Qualifiers: COPD type: unspecified COPD Qualified Code(s): J44.9 - Chronic obstructive pulmonary disease, unspecified Is this a current diagnosis for this admission?: Yes Plan: -Patient continues on bronchodilators as well as oral steroids. His breathing is much improved. He can be discharged home on oral steroids in another day or 2. (2) Chronic hypercapnic respiratory failure Is this a current diagnosis for this admission?: Yes Plan: -Known COPD sleep apnea with poor compliance to CPAP use -Admitted due to increased sleepiness and increased cough -VBG pH 7.23, PCO2 52.6 Since mental status has cleared and is probably at his baseline. Been advised to follow-up with his PCP and to use his CPAP as prescribed (3) Suspected 2019 novel coronavirus infection Is this a current diagnosis for this admission?: Yes Plan: still pending result - no known exposure Did offer the patient a chance to go home for outpatient follow-up by health department however due to comorbidities of family members he rather wait for result prior to discharge - Time Time Spent with patient: 15-24 minutes Medications reviewed and adjusted accordingly: Yes Anticipated Discharge Disposition: Home, Self Care Anticipated Discharge Timeframe: within 24 hours - Pending Covid Result
[2020-05-14] MEDS: ATORVASTATIN CALCIUM 40 MG TABLET PO SCH (21:49)
[2020-05-15] MEDS: ACETAMINOPHEN 325 MG TABLET PO PRN (04:28)
[2020-05-15] MEDS: GABAPENTIN 300 MG CAPSULE PO SCH (05:04)
[2020-05-15] MEDS: HEPARIN SOD (PORCINE) 5,000 UNIT/ML 1 ML VIAL SUBCUT SCH (05:04)
[2020-05-15 06:09] LABS: ABSOLUTE BASOPHILS # (AUTO) 0.1 10^3/uL (0.0-0.2); ABSOLUTE LYMPHOCYTES (AUTO) 2.4 10^3/uL (0.5-4.7); ABSOLUTE MONOCYTES (AUTO) 0.8 10^3/uL (0.1-1.4); TOTAL CELLS COUNTED % (AUTO) 100 %
[2020-05-15 06:33] LABS: ABSOLUTE NEUT (AUTO) 6.2 10^3/uL (1.7-8.2); BASOPHILS % (AUTO) 0.7 % (0-2); EOSINOPHILS % (AUTO) 0.4 % (0-6); HEMATOCRIT 37.1 % (37.9-51.0); HEMOGLOBIN 12.8 g/dL (13.5-17.0); MEAN CORPUSCULAR HEMOGLOBIN 29.4 pg (27.0-33.4); MEAN CORPUSCULAR HGB CONC 34.5 g/dL (32.0-36.0); MEAN CORPUSCULAR VOLUME 85 fl (80-97); MONOCYTES % (AUTO) 8.6 % (3-13); PLATELET COUNT 263 10^3/uL (150-450); RED BLOOD COUNT 4.36 10^6/uL (4.35-5.55); RED CELL DISTRIBUTION WIDTH 14.1 % (11.5-14.0); SEGMENTED NEUTROPHILS % (AUTO) 65.3 % (42-78); WHITE BLOOD COUNT 9.5 10^3/uL (4.0-10.5)
[2020-05-15] MEDS: INSULIN LISPRO 100 UNIT/ML 3 ML VIAL SUBCUT SCH ×2 (08:20→12:46)
[2020-05-15] MEDS: FLUOXETINE HCL 20 MG CAPSULE PO SCH (09:20)
[2020-05-15] MEDS: TAMSULOSIN HCL 0.4 MG CAP.SR.24H PO SCH (09:21)
[2020-05-15] MEDS: ASPIRIN 81 MG TABLET, CHEWABLE PO SCH (09:21)
[2020-05-15 12:10] VITALS: BP 153/71
--- NOTE | 2020-05-15 15:26 | PDOC DISCHARGE SUMMARY ---
Impression - Admit/DC Date/PCP Admission Date/Primary Care Provider: 05/13/20 02:[facility] Discharge Date: 05/15/20 - Assessment Summary: (1) COPD (chronic obstructive pulmonary disease) Qualifiers: COPD type: unspecified COPD Qualified Code(s): J44.9 - Chronic obstructive pulmonary disease, unspecified Is this a current diagnosis for this admission?: Yes Plan: -Patient continues on bronchodilators as well as oral steroids. His breathing is much improved. He can be discharged home on oral steroids in another day or 2. 05/15/2020-breathing is considerably improved. Patient agreed to go home today and [facility]. (2) Chronic hypercapnic respiratory failure Is this a current diagnosis for this admission?: Yes Plan: -Known COPD sleep apnea with poor compliance to CPAP use -Admitted due to increased sleepiness and increased cough -VBG pH 7.23, PCO2 52.6 Since mental status has cleared and is probably at his baseline. Been advised to follow-up with his PCP and to use his CPAP as prescribed 05/15/2020-pulse ox today's 100% on 2 L. [facility] He has CPAP machine at home. (3) Suspected 2019 novel coronavirus infection Is this a current diagnosis for this admission?: Yes Plan: still pending result - no known exposure Did offer the patient a chance to go home for outpatient follow-up by health department however due to comorbidities of family members he rather wait for result prior to discharge 05/15/20-cover test came back negative. - Additional Information Discharge Activity: Activity As Tolerated Ref[facility]: [facility] [[facility]] - Follow up as needed Home Medications: Fluoxetine HCl [Prozac 20 mg Capsule] 40 mg PO DAILY 08/31/14 Aspirin [Aspirin 325 mg Tablet] 325 mg PO DAILY 09/01/14 Atorvastatin Calcium 20 mg PO DAILY 10/30/15 Furosemide [Lasix 20 mg Tablet] 20 mg PO DAILY 10/30/15 Insulin Glargine,Hum.rec.anlog [Lantus] 20 units SUBCUT DAILY 10/30/15 Omeprazole 20 mg PO DAILY 10/30/15 Gabapentin 300 mg PO Q8 02/22/16 Lisinopril [Prinivil 40 mg Tablet] 40 mg PO DAILY #30 tablet 03/15/16 Albuterol Sulfate [Proair HFA Inhalation Aerosol 8.5 gm MDI] 2 puff IH Q6HP PRN 05/13/20 Alogliptin Benzoate [Alogliptin] 25 mg PO DAILY 05/13/20 Amlodipine Besylate [Norvasc 10 mg Tablet] 10 mg PO DAILY 05/13/20 Ammonium Lactate [Lac-Hydrin 12% Lotion 225Gm/Bottle] 1 applic TP BID 05/13/20 Carvedilol [Coreg 6.25 mg Tablet] 6.25 mg PO Q12 05/13/20 Cyanocobalamin (Vitamin B-12) [Vitamin B-12 1000 mcg Tablet] 1,000 mcg PO DAILY 05/13/20 Diclofenac Sodium 4 gm TP QIDP PRN 05/13/20 Diclofenac Sodium [Voltaren 50 mg Tablet.dr] 50 mg PO Q8HP PRN 05/13/20 Magnesium Oxide [Mag-Ox 400 mg Tablet] 400 mg PO DAILY 05/13/20 Metformin HCl [Metformin HCl ER] 500 mg PO BID 05/13/20 Multivitamin [Tab-A-Ru (Multiple Vitamin) Tablet] 1 tab PO DAILY 05/13/20 Promethazine HCl [Phenergan 25 mg Tablet] 25 mg PO TIDP PRN 05/13/20 Tamsulosin HCl [Flomax 0.4 mg Cap.sr] 0.4 mg PO DAILY 05/13/20 Terbinafine HCl [Antifungal] 1 applic TP BID 05/13/20 History of Present Illiness History of Present Illness: LISA ESCOBAR is a 65 year old male 65 year old male, history of COPD on albuterol, type 2 diabetes, coronary artery disease who came in the emergency room with complaints of increased sleepiness cough. According to the patient and her daughter he has been having cough with minimal mucus production 1 week with associated general malaise, no fever. About 1 day prior to admission he was noted to have increased sleepiness, falling asleep during conversations which is not his baseline. He is supposed to be on BiPAP which he admits to not using for a few months. He denies any wheezing, chest pain, palpitations. No prior history of hospital admission secondary to COPD. No known exposure to COVID. Per EMS notes he was noted to be hypotensive hence was given 1 L of normal saline. He was also recently diagnosed with carotid artery stenosis. In the emergency room blood pressure upon arrival was 90/48, rate of 62. WBC count 11.1, low been 12.1. CMP showed creatinine of 2.03 lactic acid 2.5. Urine no signs of UTI . blood cultures were sent EKG showed sinus rhythm, his x- ray was unremarkable, CT unremarkable. He was given 1 dose of p.o. azithromycin, and duo nebs. He was subsequently admitted for further evaluation and management Hospital Course Hospital Course: 65 year old male, history of COPD on albuterol, type 2 diabetes, coronary artery disease who came in the emergency room with complaints of increased sleepiness cough. According to the patient and her daughter he has been having cough with minimal mucus production 1 week with associated general malaise, no fever. About 1 day prior to admission he was noted to have increased sleepiness, falling asleep during conversations which is not his baseline. He is supposed to be on BiPAP which he admits to not using for a few months. He denies any wheezing, chest pain, palpitations. No prior history of hospital admission secondary to COPD. No known exposure to COVID. Per EMS notes he was noted to be hypotensive hence was given 1 L of normal saline. He was also recently diagnosed with carotid artery stenosis. In the emergency room blood pressure upon arrival was 90/48, rate of 62. WBC count 11.1, low been 12.1. CMP showed creatinine of 2.03 lactic acid 2.5. Urine no signs of UTI . blood cultures were sent EKG showed sinus rhythm, his x- ray was unremarkable, CT unremarkable. He was given 1 dose of p.o. azithromycin, and duo nebs. He was subsequently admitted for further evaluation and management 05/14/20 Subjective:: Patient's breathing is much improved. He is much more comfortable. His COVID test is still pending. He has been oxygenating well. He still has a few scattered wheezing. 05/15/2020-patient is comfortably in the bed communicating well pulse ox is 100% on 2 L. On examination chest bilateral dose decreased no wheezing no crepitations. Patient agreed to use CPAP at home. [facility] Physical Exam Vital Signs: Temp Pulse Resp BP Pulse Ox 97.7 F 72 23 H 162/82 H 95 05/15/20 11:55 05/15/20 11:55 05/15/20 11:55 05/15/20 11:55 05/15/20 11:55 Intake & Output 05/14/20 05/15/20 05/16/20 06:59 06:59 06:59 Intake Total 932 1632 825 Output Total 300 2350 Balance 632 -039 825 Weight 143 kg 143 kg General appearance: PRESENT: no acute distress, morbidly obese Head exam: PRESENT: atraumatic Eye exam: PRESENT: PERRLA Mouth exam: PRESENT: moist, tongue midline Teeth exam: PRESENT: poor dentation Neck exam: ABSENT: carotid bruit, JVD, lymphadenopathy, thyromegaly Respiratory exam: PRESENT: decreased breath sounds Cardiovascular exam: PRESENT: RRR. ABSENT: diastolic murmur, rubs, systolic murmur GI/Abdominal exam: PRESENT: normal bowel sounds, soft. ABSENT: distended, guarding, mass, organolmegaly, rebound, tenderness Rectal exam: PRESENT: deferred Extremities exam: PRESENT: full ROM. ABSENT: calf tenderness, clubbing, pedal edema Neurological exam: PRESENT: alert, awake, oriented to person, oriented to place, oriented to time, oriented to situation, CN II-XII grossly intact. ABSENT: motor sensory deficit Psychiatric exam: PRESENT: appropriate affect, normal mood. ABSENT: homicidal ideation, suicidal ideation Results Laboratory Results: WBC 9.5 10^3/uL (4.0-10.5) 05/15/20 05:45 RBC 4.36 10^6/uL (4.35-5.55) 05/15/20 05:45 Hgb 12.8 g/dL (13.5-17.0) L 05/15/20 05:45 Hct 37.1 % (37.9-51.0) L 05/15/20 05:45 MCV 85 fl (80-97) 05/15/20 05:45 MCH 29.4 pg (27.0-33.4) 05/15/20 05:45 MCHC 34.5 g/dL (32.0-36.0) 05/15/20 05:45 RDW 14.1 % (11.5-14.0) H 05/15/20 05:45 Plt Count 263 10^3/uL (150-450) 05/15/20 05:45 Lymph % (Auto) 25.0 % (13-45) 05/15/20 05:45 [place] % (Auto) 8.6 % (3-13) 05/15/20 05:45 Eos % (Auto) 0.4 % (0-6) 05/15/20 05:45 Baso % (Auto) 0.7 % (0-2) 05/15/20 05:45 Absolute Neuts (auto) 6.2 10^3/uL (1.7-8.2) 05/15/20 05:45 Absolute Lymphs (auto) 2.4 10^3/uL (0.5-4.7) 05/15/20 05:45 Absolute Monos (auto) 0.8 10^3/uL (0.1-1.4) 05/15/20 05:45 Absolute Eos (auto) 0.0 10^3/uL (0.0-0.6) 05/15/20 05:45 Absolute Basos (auto) 0.1 10^3/uL (0.0-0.2) 05/15/20 05:45 Seg Neutrophils % 65.3 % (42-78) 05/15/20 05:45 PT 13.4 SEC (11.4-15.4) 05/12/20 23:33 PT Cancelled 05/12/20 23:33 INR 1.00 05/12/20 23:33 INR Cancelled 05/12/20 23:33 INR (Anticoag Therapy) Cancelled 05/12/20 23:33 APTT 30.2 SEC (23.5-35.8) 05/12/20 23:33 APTT Cancelled 05/12/20 23:33 Carbonic Acid 1.28 mmol/L (1.05-1.35) 05/14/20 06:59 HCO3/H2CO3 Ratio 18:1 05/14/20 06:59 ABG pH 7.36 (7.35-7.45) 05/14/20 06:59 ABG pCO2 42.5 mmHg (35-45) 05/14/20 06:59 ABG pO2 75.0 mmHg (80-100) L 05/14/20 06:59 ABG HCO3 23.4 mmol/L (20-24) 05/14/20 06:59 ABG Total CO2 24.7 mmol/L (23-27) 05/14/20 06:59 ABG O2 Saturation 94.5 % (94-98) 05/14/20 06:59 ABG Base Excess -2.1 mmol/L 05/14/20 06:59 VBG pH 7.23 (7.30-7.42) L 05/12/20 23:33 VBG pCO2 52.6 mmHg (35-63) 05/12/20 23:33 VBG HCO3 21.3 mmol/L (20-32) 05/12/20 23:33 VBG Base Excess -6.6 mmol/L 05/12/20 23:33 FiO2 21% 05/14/20 06:59 Sodium 137.5 mmol/L (137-145) 05/14/20 05:55 Potassium 4.8 mmol/L (3.6-5.0) 05/14/20 05:55 Chloride 106 mmol/L (98-107) 05/14/20 05:55 Carbon Dioxide 24 mmol/L (22-30) 05/14/20 05:55 Anion Gap 8 (5-19) 05/14/20 05:55 BUN 31 mg/dL (7-20) H 05/14/20 05:55 Creatinine 1.01 mg/dL (0.52-1.25) 05/14/20 05:55 Est GFR ( Amer) > 60 (>60) 05/14/20 05:55 Est GFR (MDRD) Non-Af > 60 (>60) 05/14/20 05:55 Glucose 197 mg/dL (75-110) H 05/14/20 05:55 POC Glucose 199 mg/dL (70-110) H 05/15/20 11:27 Lactic Acid 1.8 mmol/L (0.7-2.1) 05/13/20 06:43 Calcium 8.9 mg/dL (8.4-10.2) 05/14/20 05:55 Total Bilirubin 0.5 mg/dL (0.2-1.3) 05/14/20 05:55 Direct Bilirubin 0.2 mg/dL (0.0-0.4) 05/14/20 05:55 Neonat Total Bilirubin Not Reportable 05/14/20 05:55 Neonat Direct Bilirubin Not Reportable 05/14/20 05:55 Neonat Indirect Bili Not Reportable 05/14/20 05:55 AST 17 U/L (17-59) 05/14/20 05:55 ALT 14 U/L (<50) 05/14/20 05:55 Alkaline Phosphatase 58 U/L (38-126) 05/14/20 05:55 Troponin I < 0.012 ng/mL 05/12/20 23:33 NT-Pro-B Natriuret Pep 31 pg/mL (<125) 05/12/20 23:33 Total Protein 6.2 g/dL (6.3-8.2) L 05/14/20 05:55 Albumin 3.3 g/dL (3.5-5.0) L 05/14/20 05:55 Urine Color YELLOW 05/13/20 00:39 Urine Appearance SLIGHTLY-CLOUDY 05/13/20 00:39 Urine pH 5.0 (5.0-9.0) 05/13/20 00:39 Ur Specific [place] 1.021 05/13/20 00:39 Urine Protein 30 mg/dL (NEGATIVE) H 05/13/20 00:39 Urine Glucose (UA) NEGATIVE mg/dL (NEGATIVE) 05/13/20 00:39 Urine Ketones NEGATIVE mg/dL (NEGATIVE) 05/13/20 00:39 Urine Blood MODERATE (NEGATIVE) H 05/13/20 00:39 Urine Nitrite (Reflex) NEGATIVE (NEGATIVE) 05/13/20 00:39 Urine Bilirubin SMALL (NEGATIVE) H 05/13/20 00:39 Urine Urobilinogen NEGATIVE mg/dL (<2.0) 05/13/20 00:39 Leukocyte Esterase Rfl NEGATIVE (NEGATIVE) 05/13/20 00:39 Urine RBC (Auto) 18 /HPF 05/13/20 00:39 U Hyaline Cast (Auto) 10 /LPF 05/13/20 00:39 Urine WBC (Reflex) 4 /HPF 05/13/20 00:39 Squamous Epi Cells Auto <1 /HPF 05/13/20 00:39 Urine Mucus (Auto) RARE /LPF 05/13/20 00:39 Urine Ascorbic Acid NEGATIVE (NEGATIVE) 05/13/20 00:39 Urine Opiates Screen UNCONFIRMED POSITIVE 05/13/20 00:39 Urine Methadone Screen NEGATIVE 05/13/20 00:39 Ur Barbiturates Screen UNCONFIRMED POSITIVE 05/13/20 00:39 Ur Phencyclidine Scrn NEGATIVE 05/13/20 00:39 Ur Amphetamines Screen NEGATIVE 05/13/20 00:39 U Benzodiazepines Scrn NEGATIVE 05/13/20 00:39 Urine Cocaine Screen NEGATIVE 05/13/20 00:39 U Marijuana (THC) Screen NEGATIVE 05/13/20 00:39 COVID-19 Source NASOPHARYNGEAL 05/13/20 01:04 COVID-19 ([place]ASMANI) NOT DETECTED 05/13/20 01:04 05/12/20 23:33 Troponin I < 0.012 NT-Pro-B Natriuret Pep 31 Impressions: Chest X-Ray 05/13/20 00:06 IMPRESSION: No evidence of active intrathoracic disease. Head CT 05/13/20 01:53 IMPRESSION: Stable exam with no acute intracranial abnormality. Plan Time Spent: Greater than 30 Minutes Stroke Is this a Stroke Patient?: No Acute Heart Failure Is this a Heart Failure Patient?: No
== END 2020-05-15 13:00 | disposition home or self-care (01) | DRG 191 ==
LOC: ER 23:09 → EH 05-13 02:29 → 3N 05-13 16:17 → 4N 05-15 06:05
PROVIDERS: ADMIT Internal Medicine; ATTEND Internal Medicine
DX: J44.9 Chronic obstructive pulmonary disease, unspecified (principal); J96.12 Chronic respiratory failure with hypercapnia; N17.9 Acute kidney failure, unspecified; I95.9 Hypotension, unspecified; I11.0 Hypertensive heart disease with heart failure; I50.9 Heart failure, unspecified; E11.9 Type 2 diabetes mellitus without complications; I25.10 Atherosclerotic heart disease of native coronary artery without angina pectoris; I65.29 Occlusion and stenosis of unspecified carotid artery; E66.01 Morbid (severe) obesity due to excess calories; E78.5 Hyperlipidemia, unspecified; K21.9 Gastro-esophageal reflux disease without esophagitis; F32.9 Major depressive disorder, single episode, unspecified; G89.29 Other chronic pain; G47.33 Obstructive sleep apnea (adult) (pediatric); M54.5 Low back pain; Z11.59 Encounter for screening for other viral diseases; Z79.82 Long term (current) use of aspirin; Z79.4 Long term (current) use of insulin; Z79.899 Other long term (current) drug therapy; Z87.891 Personal history of nicotine dependence; Z91.19 Patient's noncompliance with other medical treatment and regimen; Z86.73 Personal history of transient ischemic attack (TIA), and cerebral infarction without residual deficits
CPT/HCPCS: 36415; 36600; 70450; 71045; 80053; 80307; 81001; 82803; 82962; 83605; 83880; 84484; 85025; 85610; 85730; 87040; 87070; 87635; 93005; 93010; 94640; 94660; 96360; 99285; C9803; J1644; J1815; J1885; J7030; J7512